=== PATIENT | female | born 1950 ===

== ENCOUNTER 2016-11-16 23:29 | Emergency (ER) | payer BC ==
--- NOTE | ~2016-11-16 | ER ---
PATIENT'S NAME: KEVIN OLIVEIRA [facility] AGE: 66 Y [address] ROOM: [place] [address] LOCATION: [facility] ADMIT DATE: 11/16/2016 ER/Outpatient Report DISCHARGE DATE: 11/17/2016 FAMILY PHYSICIAN: Mireille Lee MD ATTENDING PHYSICIAN: Maru Nieves TIME SEEN: 2340 hours. CHIEF COMPLAINT: Lateral right ankle pain and swelling. HISTORY OF PRESENT ILLNESS: The patient is a 66-year-old female, said she was coming down the stairs and missed a step rolling her right ankle, presents with right lateral swelling and pain. She said she did hear a pop or snapping at the time of the injury. ALLERGIES: THERE ARE NO MEDICINAL ALLERGIES. CURRENT MEDICATIONS: See her copied list. MEDICAL HISTORY: Includes hypertension, migraines, hypothyroidism. PREVIOUS INJURIES: She has had a fractured left ankle years ago. She has also had a fracture to her right foot, has had some tendon issues in the past. SOCIAL HISTORY: She is . Nonsmoker. REVIEW OF SYSTEMS: GENERAL: General health good. MUSCULOSKELETAL: Lateral right ankle swelling and pain as a result of a twisting motion injury. PHYSICAL EXAMINATION: VITAL SIGNS: Reviewed. EXTREMITIES: The patient was unable to bear weight. Exam of the right ankle shows right lateral swelling, quite tender. She had no medial tendon tenderness. She had no significant foot tenderness. DIAGNOSTIC DATA: PATIENT'S NAME: KEVIN OLIVEIRA [facility] AGE: 66 Y [address] ROOM: [place] [address] LOCATION: [facility] ADMIT DATE: 11/16/2016 ER/Outpatient Report DISCHARGE DATE: 11/17/2016 FAMILY PHYSICIAN: Mireille Lee MD ATTENDING PHYSICIAN: Maru Nieves X-rays showed calcified area in the posterior heel, also on the medial mortise, there was a small bony fragment, which appeared smooth and old, laterally I could not see any fractures. ASSESSMENT: Probably grade 2 sprain, right ankle. PLAN: She does have a boot at home. Recommend that she use it, elevation, ice. She was given 2 [place] here in the emergency room and a script for [place] for pain. Recommend she follow up with [facility], first of the week. Weightbearing as tolerated. She was fitted with crutches here in the emergency room. YONY NASH FOR MD JOCELYNN PALOMO/lluvia /[id number] d: 11/17/16 0416 t: 11/26/16 1838, OUTPATIENT REPORT
[~2016-11-16 23:29] MED LIST: COLACE100 MG PO; ELAVIL50 MG PO; HYDRODIURIL25 MG PO; KEFLEX500 MG PO; LATANOPROST2.5 ML OPHTH; LEVOTHROID (S150 MCG PO; NARATRIPTAN HC2.5 MG PO; NORCO 5-325 TA1 EACH PO; TOPROL XL 5050 MG PO; TUMS REGULAR ST1 TAB PO; TYLENOL325 MG PO
== END 2016-11-17 00:07 | disposition disaster alternative care site (69) ==
LOC: GACC 23:29
DX: M25.571 Pain in right ankle and joints of right foot (principal); I10 Essential (primary) hypertension; E03.9 Hypothyroidism, unspecified; X50.9XXA Other and unspecified overexertion or strenuous movements or postures, initial encounter